=== PATIENT | male | born 1960 | race Caucasian/White ===

== ENCOUNTER → 2016-08-25 | Day surgery (SDC) | payer BC ==
[~2016-08-25] VITALS: Ht 185.4 cm; Wt 98.1 kg
[~2016-08-25] MED LIST: BENADRYL50 MG PO; CLARITIN10 MG PO; MOTRIN600 MG PO; NORCO 5-325 TA1 EACH PO; VITAMIN B-121000 MCG PO
[2016-08-25 10:47] LABS: BASOPHIL # 0.1 K/uL (0.0-0.2); BASOPHIL % 0.7 %; EOSINOPHIL # 0.1 K/uL (0.0-0.5); EOSINOPHIL % 1.5 %; HEMATOCRIT 40.7 % (37.0-53.0); HEMOGLOBIN 13.4 g/dL (12.0-17.0); IMMATURE GRANULOCYTE % 0.3 %; LYMPHOCYTE # 2.3 K/uL (0.8-4.0); LYMPHOCYTE % 31.2 %; MCH 31.7 pg (27.0-34.0); MCHC 32.9 gm/dL (32.0-36.5); MCV 96.2 fl (83.0-98.0); MONOCYTE # 0.6 K/uL (0.0-1.0); MONOCYTE % 7.5 %; MPV 11.2 fl (9.4-12.4); NEUTROPHIL # (ANC) 4.4 K/uL (1.4-9.0); NEUTROPHIL % 58.8 %; NRBC % 0 /100WBC (0-0.00); PLATELET COUNT 215 K/uL (150-450); RBC 4.23 M/uL (4.00-6.00); RDW-CV 12.9 % (11.9-14.6); WBC 7.5 K/uL (4.0-11.0)
[2016-08-25 11:07] LABS: ALBUMIN 3.6 gm/dL (3.5-5.0); ALK PHOS 100 IU/L (33-138); ALT 33 IU/L (12-78); AST 18 IU/L (10-40); BLOOD UREA NITROGEN 7 mg/dL (6-24); CALCIUM 8.5 mg/dL (8.5-10.5); CHLORIDE 108 mMol/L (96-110); CO2 30 mMol/L (22-32); SODIUM 142 mMol/L (135-145); TOTAL BILIRUBIN 0.5 mg/dL (0.0-1.5); TOTAL PROTEIN 6.8 g/dL (6.0-8.4)
[2016-08-25 11:08] LABS: ESTIMATED GFR (MDRD EQUATION) > 60
== END | disposition disaster alternative care site (69) ==
LOC: GPOC 08-18 15:00
PROVIDERS: Physician Assistant
PROC: 0DBH8ZX Excision of Cecum, Via Natural or Artificial Opening Endoscopic, Diagnostic (ICD-10-PCS; principal; 2016-08-25)
PROC: 0DBN8ZZ Excision of Sigmoid Colon, Via Natural or Artificial Opening Endoscopic (ICD-10-PCS; 2016-08-25)
PROC: 0DBE8ZZ Excision of Large Intestine, Via Natural or Artificial Opening Endoscopic (ICD-10-PCS; 2016-08-25)
DX: D12.0 Benign neoplasm of cecum (principal); D12.5 Benign neoplasm of sigmoid colon; D12.6 Benign neoplasm of colon, unspecified; I10 Essential (primary) hypertension; Z87.891 Personal history of nicotine dependence
CPT/HCPCS: J0171; J0360; J7030

== ENCOUNTER 2016-08-29 14:00 | Inpatient (IN) | payer BC ==
[~2016-08-29] VITALS: Ht 185.4 cm; Wt 93.4 kg
--- NOTE | ~2016-08-29 | DS ---
PATIENT'S NAME: CHAPIN TALBOT [facility] AGE: 56 Y [address] ROOM: [address] [place], [place] [address] [place] [facility] [place]: [place] Discharge Summary DISCHARGE DATE: 09/05/2016 FAMILY PHYSICIAN: Isabel Frankel MD ATTENDING PHYSICIAN: Vicente Dey DIAGNOSIS: Right colon mass. SUMMARY: Chapin Talbot is a 56-year-old male, who underwent screening colonoscopy with Dr. Cardenas that revealed several polyps and also revealed a cecal mass. The cecal mass was biopsied which revealed adenoma with high- grade dysplasia and changes suggestive of intramucosal adenocarcinoma. The patient was seen by Dr. Dey at [facility] on 08/27/2016 for consultation. He was noted to have a CEA level of 6.1. Dr. Dey discussed the findings and recommendations in regard to the colon resection. The risks, benefits, and alternatives were discussed. The patient was admitted to [facility] on the morning of 09/02/2016. Mefoxin 2 g IV preoperatively were ordered, but subsequently changed to Invanz due to allergies. The patient was taken to the operating room for a laparoscopic right colon resection. Postoperatively, activity was allowed as tolerated. He was started on clear liquids. Lovenox was ordered for DVT prophylaxis, Dilaudid CHIEF HYDROELECTRIC STATION OPERATOR along with oral Tylenol and ibuprofen were ordered for pain control. His Regalado catheter was removed few hours postoperatively. On postop day 1, the patient was doing okay. He was not utilizing the CHIEF HYDROELECTRIC STATION OPERATOR. He was able to void. Vital signs were stable. White blood cell count was 15.3. His CHIEF HYDROELECTRIC STATION OPERATOR was discontinued. [place] was ordered for pain along with p.r.n. Dilaudid. He was advanced to full liquids later in the day. On postop day 2, the patient had increasing pain after the local anesthetic had worn off. He was not passing flatus. White blood cell count was down to 10.5. He was advanced to a surgical soft diet. IV was saline locked. On postop day 3, the patient was doing well and was tolerating diet. Arrangements were made for the patient to discharge home. DISCHARGE INSTRUCTIONS: Included no restrictions on diet. No heavy lifting. He will follow up with Dr. Dey in 1 to 2 weeks. DISCHARGE MEDICATIONS: Include resuming home medicine of: 1. Claritin 10 mg p.o. daily. 2. Vitamin B12 1000 mcg p.o. every 7 days. 3. Benadryl 50 mg p.r.n. 4. Prescription was written for [place] 5/325 one to two p.o. every 4 hours p.r.n. pain dispensing 30 with no refills. Final pathology is not available at this time. PATIENT'S NAME: CHAPIN TALBOT [facility] AGE: 56 Y [address] ROOM: [id number] [place] [id number] [place] [facility] [place]: 09/[place] Discharge Summary DISCHARGE DATE: 09/05/2016 FAMILY PHYSICIAN: Isabel Frankel MD ATTENDING PHYSICIAN: Vicente Dey For specifics on day-to-day care, please refer to the hospital chart. 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 This is a stage 3B (T3N2M0) colon cancer. ESTRELLA ROSENTHAL PA-C FOR VICENTE DEY MD KDK/modl /[id number] d: 09/09/16 0159 t: 09/09/16 0700, DISCHARGE SUMMARY
--- NOTE | ~2016-08-29 | OR ---
PATIENT'S NAME: GARCÍA CALI [facility] AGE: 56 Y [address] ROOM: [address] [address] LOCATION: [facility] [place] ADMIT DATE: 09/02/2016 OR/Procedure Report DISCHARGE DATE: FAMILY PHYSICIAN: Isabel Frankel MD ATTENDING PHYSICIAN: Vicente Dey SURGEON: Vicente Dey MD DINING CAR HOP: Adriana Leon PA-C. DATE OF PROCEDURE: 09/02/2016 PREOPERATIVE DIAGNOSIS: Unresectable cecal polyp. POSTOPERATIVE DIAGNOSIS: Unresectable cecal polyp. PROCEDURE: Laparoscopic right hemicolectomy. FINDINGS: On examination, there was no evidence of metastatic disease and no gross invasion to surrounding structures. ESTIMATED BLOOD LOSS: 50 mL. COMPLICATIONS: None. INDICATIONS: The patient is a 56-year-old male, who had a colonoscopy, revealing a large cecal polyp, this revealed carcinoma in situ, although there were some features concerning for malignancy. We discussed right colectomy with the patient; the risks, benefits, and alternatives; and he elected to proceed. DESCRIPTION OF PROCEDURE: The patient was taken to the operating room, he was placed supine, he was given IV sedation, and subsequently intubated. A Regalado catheter was inserted. His abdomen was then prepped with ChloraPrep and sterilely draped. Local anesthetic was infiltrated just superior to the umbilicus. A vertical incision was created. The abdomen was elevated. A Veress needle was inserted. Pneumoperitoneum was induced. Following this, an 11 mm trocar was inserted followed by insertion of the camera. There was no injury from initial trocar placement. Two more trocars were then placed, these were both 5 mm trocars and inserted in the left abdomen. These were inserted under direct visualization. The right colic vessels were identified, these were traced back to the base. A window was then created at the base of the mesentery. A window was able to be created and using both blunt dissection as well as the EnSeal device, we were able to create a large window, identified the duodenum. The right colonic vessels were divided using the EnSeal device. We continued our dissection in a medial to lateral plain all the way to the cecum and to the mid transverse colon. Again, the duodenum was able to be identified. The lateral attachments were then mobilized from PATIENT'S NAME: GARCÍA CALI [facility] AGE: 56 Y [address] ROOM: [address] [place], [place] [address] LOCATION: [facility] [place] ADMIT DATE: 09/02/2016 OR/Procedure Report DISCHARGE DATE: FAMILY PHYSICIAN: Isabel Frankel MD ATTENDING PHYSICIAN: Vicente Dey the line of Toldt. Using the EnSeal device, the appendix was also quite adherent, that had to be mobilized. Once the lateral attachments were divided, the omentum was taken off the transverse colon up to the mid transverse colon. At this point in time, the mesentery was divided up to our proximal and distal sites of resection. This was performed with the EnSeal device up to the terminal ileum and mid transverse colons. Once the right colon was adequately mobilized, abdominal cavity was inspected and appeared hemostatic. There appeared to be no evidence of metastatic disease. The incision for the midline trocar was then increased in size. An Gomez wound protector was then placed into this. The specimen was delivered through this. Our proximal and distal sites of resection were planned. The small bowel and transverse colon were divided with SHERLEY staplers. These 2 ends of bowel were placed in a [id number] fashion using 3-0 silk suture. Enterotomy and colotomy were then created. The limb of the SHERLEY stapler was inserted in the each side, this was fired. The enterotomy and colotomy were then closed with a TA stapler, this created a common lumen with a [id number] anastomosis. This was inspected, it was hemostatic. It was allowed to fall back into the abdominal cavity. The fascia of the midline incision was reapproximated with looped 0 PDS suture. The 11 mm trocar was inserted through this. Pneumoperitoneum was again induced. The abdominal cavity was inspected, it appeared hemostatic. Pneumoperitoneum was again released. The trocars were all removed. The midline fascia was closed with 0 PDS suture. All the skin edges were approximated with 4-0 Monocryl suture. Steri-Strips and sterile dressings were placed. The patient was extubated and sent to recovery in good condition. The lesion was present within the cecum. Adriana Leon was necessary for the entire procedure for visualization, retraction, and hemostasis. VICENTE J MD ABBI DEY/jennifer /[id number] d: 09/02/16 2147 t: 09/16/16 1811, OPERATIVE SUMMARY
[~2016-08-29 14:00] MED LIST changes: -BENADRYL50 MG PO; -MOTRIN600 MG PO; -NORCO 5-325 TA1 EACH PO
[2016-09-02] MEDS ORDERED: BENADRYL50 MG PO (11:07)
[2016-09-03 05:09] LABS: BASOPHIL % 0.1 %; HEMATOCRIT 35.4 % (37.0-53.0); HEMOGLOBIN 11.7 g/dL (12.0-17.0); IMMATURE GRANULOCYTE % 0.2 %; LYMPHOCYTE # 1.5 K/uL (0.8-4.0); MCH 31.4 pg (27.0-34.0); MCHC 33.1 gm/dL (32.0-36.5); MCV 94.9 fl (83.0-98.0); MONOCYTE # 1.4 K/uL (0.0-1.0); MONOCYTE % 8.8 %; MPV 12.5 fl (9.4-12.4); NEUTROPHIL # (ANC) 12.4 K/uL (1.4-9.0); NEUTROPHIL % 80.9 %; NRBC % 0 /100WBC (0-0.00); PLATELET COUNT 187 K/uL (150-450); RBC 3.73 M/uL (4.00-6.00); RDW-CV 12.6 % (11.9-14.6); WBC 15.3 K/uL (4.0-11.0)
[2016-09-03 05:22] LABS: ANION GAP 12.1 (10.0-19.0); BLOOD UREA NITROGEN 12 mg/dL (6-24); CALCIUM 7.7 mg/dL (8.5-10.5); CHLORIDE 106 mMol/L (96-110); CO2 25 mMol/L (22-32); ESTIMATED GFR (MDRD EQUATION) > 60; POTASSIUM 4.1 mMol/L (3.7-5.1); SODIUM 139 mMol/L (135-145)
--- NOTE | 2016-09-03 06:04 | NUR ---
Significant Event: Patient is A&O x 3. Ambulated in tafoya with SBA when he got to the floor around 1800. Has 3 lap sites, covered in gauze, top one saturated. Has MANAGER OF REGULATORY AFFAIRS Dilauded 0.2 demand, 10 min lockout. Had 0 attempts and 0 deliveries. Takes scheduled Tylenol Q6H and has Motrin PRN. IV to L) wrist with LR @ 100ml/hr. Patient states he has had 4 voids since noyola removal, caught one void, 125ml out. Bladder scan showed 523ml following void. Orders to restart noyola if needed. Clear liquid diet. Patient rested well throughout night. VSS on RA. Follow up: Continue to monitor. Possibly D/C MANAGER OF REGULATORY AFFAIRS.
--- NOTE | 2016-09-03 16:31 | NUR ---
AAOx3. Cooperative with cares. Up independently in room. Showered today. IVF to LFA @50ml/hr. AUTHORIZATION REPRESENTATIVE d/c'd this a.m. Has PO and IV pain meds PRN; only gave Motrin PRN. Tolerating clear liquids. Will advance to full liquid for supper. Voiding well.
--- NOTE | 2016-09-04 05:01 | NUR ---
Significant Event: AAOX4. FULL LIQUID DIET. PIV IN PLACE AND PATENT WITH IVF INFUSING. INDPENDENT WITH ACTIVITIES. REPORTS VOIDS TO STAFF. ABLE TO MAKE NEEDS KNOWN. HELD 2300 TYLENOL DUE TO MAX AMOUNT GIVEN IN A 24 HOUR PERIOD. DILAUDED IVP ADMINISTERED AT 2108 DUE TO THIS, AND PT COMPLAINED OF NAUSEA. REFUSED ZOFRAN, PEPPERMINT EO PLACED AT BEDSIDE. PT STATED IT HELPED WITH NAUSEA. IBUPROFEN ADMINISTERED AT 108 FOR PAIN 07/18. DRESSINGS TO STAB SITES DRY/INTACT WITH SHADOWING TO ONE. Follow up:
[2016-09-04 05:26] LABS: BASOPHIL % 0.4 %; EOSINOPHIL % 0.2 %; HEMATOCRIT 28.7 % (37.0-53.0); HEMOGLOBIN 9.4 g/dL (12.0-17.0); IMMATURE GRANULOCYTE % 0.3 %; LYMPHOCYTE # 1.5 K/uL (0.8-4.0); MCH 31.9 pg (27.0-34.0); MCHC 32.8 gm/dL (32.0-36.5); MCV 97.3 fl (83.0-98.0); MONOCYTE % 9.8 %; MPV 12.4 fl (9.4-12.4); NEUTROPHIL # (ANC) 7.9 K/uL (1.4-9.0); NEUTROPHIL % 75.3 %; NRBC % 0 /100WBC (0-0.00); PLATELET COUNT 170 K/uL (150-450); RBC 2.95 M/uL (4.00-6.00); RDW-CV 12.7 % (11.9-14.6); WBC 10.5 K/uL (4.0-11.0)
--- NOTE | 2016-09-04 16:24 | NUR ---
Significant Event:Is A/O.IV put to at 1000.Has 3 abd stab sites that are covered with drsgs & one with old drmercy.Voiding ok.No flatus or stools yet.Amb alot in halls.Is now on surgical soft diet & shreyas.well.Had Ibprofen 600mg at 1538. Follow up:
--- NOTE | 2016-09-04 16:43 | NUR ---
SPOKE TO PATIENT REGARDING CM AND OUR ROLE. PATIENT LIVES ALONE IN OWN HOME. HE IS PLANNING ON BEING DISCHARGE HOME TOMORROW HIS SON WILL BE STAYING WITH HIM FOR A FEW DAYS AND HIS MOTHER WILL BE THERE TO HELP HIM WELL. PATIENT DOES NOT ANTICIPATE ANY DISCHARGE NEEDS AT THIS ITWI.
--- NOTE | 2016-09-05 03:23 | NUR ---
Significant Event: Patient is alert and oriendted, VSS on room air, afebrile. Stomach is stool a little distended with active bowel sounds. Patient went for a walk around the unit with and son. Tolerated soft diet well.
[2016-09-05] MEDS ORDERED: MOTRIN600 MG PO (09:18)
[2016-09-05] MEDS ORDERED: NORCO 5-325 TA1 EACH PO (09:19)
--- NOTE | 2016-09-05 09:27 | NUR ---
D: Orders received for the patient to be discharged to home today. I: Dismissal instructions were prepared and reviewed with the patient virtually. The following information was discussed with the patient including Steve teaching sheets provided: Discharge instructions for colon resection, motrin, norco, and preventing DVT. Reviewed follow up appointment with Dr. Gauthier and new prescription he will need to take to his pharmacy to get filled. R: The patient verbailized understanding of the dismissal education at the time of teaching with no further questions. P: The above information was shared with the primary nurse and the charge nurse that the patient dismissal instructions were completed. The patient is ready for discharge to the front door via wheel chair by nursing staff when his son gets here approximently 1030.
== END 2016-09-05 10:20 | disposition disaster alternative care site (69) | DRG 331 ==
LOC: GMSU 09-02 10:51
PROVIDERS: Physician Assistant; ADMIT Surgery
PROC: 0DTF4ZZ Resection of Right Large Intestine, Percutaneous Endoscopic Approach (ICD-10-PCS; principal; 2016-09-02)
DX: D12.0 Benign neoplasm of cecum (principal); D01.0 Carcinoma in situ of colon
CPT/HCPCS: C9290; J0131; J0694; J1100; J1170; J1335; J1650; J2250; J2405; J7120

== ENCOUNTER → 2016-09-15 | Outpatient (CLI) | payer BC ==
[~2016-09-15] MED LIST changes: +BENADRYL50 MG PO; +MOTRIN600 MG PO; +NORCO 5-325 TA1 EACH PO
== END | disposition disaster alternative care site (69) ==
LOC: GRAD 13:48
DX: C18.0 Malignant neoplasm of cecum (principal)